=== PATIENT | female | born 2000 | race Hispanic/Latino ===

== ENCOUNTER 2021-07-30 19:38 | Emergency (ER) | payer MEDICAID, OTHER ==
[2021-07-30 20:37] LABS: Bilirubin Neg (Negative); Blood, Urine Negative (Negative); Clarity Clear (Clear); Glucose, Urine (Dipstick) Normal (Negative); Ketone, Urine Negative (Negative); Leukocyte 25 (Negative); Nitrite Negative (Negative); Protein, Urine (Dipstick) Negative (Neg-Trace); Specific Gravity, Urine 1.025 (1.002-1.036); Urobilinogen Normal mg/dL (Less than 2)
[2021-07-30 20:38] LABS: Pregnancy Test - Urine (BHCG) POSITIVE (Negative); Pregu Control Background? CLEAR/WHITE (CLR/WHITE); Pregu Control Bar Appear? YES (CONTROL BAR); Specific Gravity 1.025 (1.002-1.036)
[2021-07-30 20:44] LABS: Bacteria/HPF 2+ HPF (None Seen); RBC/HPF None Seen HPF (0-3); Squamous Epithelial 0-3 HPF (0-3); WBC/HPF 0-3 HPF (0-3)
[2021-07-30 20:45] LABS: Mucous/LPF 1+ LPF (<2+)
== END 2021-07-30 22:17 | disposition home or self-care (01) ==
LOC: CSHERS 19:38
DX: O00.01 Abdominal pregnancy with intrauterine pregnancy (principal); Z3A.01 Less than 8 weeks gestation of pregnancy
CPT/HCPCS: 76856; 81003; 81015; 81025; 84702; 87086